=== PATIENT | female | born 1960 | race Hispanic/Latino ===

== ENCOUNTER 2021-07-31 07:39 | Outpatient (RCR) | payer MEDICARE, SELFPAY ==
--- NOTE | 2021-07-30 13:27 | PC.NURSE ---
Patient received [employer] vaccine in December 2020.
[2021-07-31] MEDS: diphenhydrAMINE HCl CAP 25 MG CAPSULE PO (07:58)
[2021-07-31] MEDS: ACETAMINOPHEN 325 MG TABLET 650 MG PO (07:58)
[2021-07-31] MEDS: FAMOTIDINE 20 MG TABLET PO (07:58)
[2021-07-31 08:13] VITALS: BP 131/69; PULSE 74; RESP 18; TEMP 35.9; O2SAT 99
--- NOTE | 2021-07-31 08:17 | PC.NURSE ---
Attempted to start IV on patient twice. Unable to get IV started due to lack of veins. Will give medication subcutaneous.
[2021-07-31 09:19] VITALS: BP 144/89
--- NOTE | 2021-08-03 12:48 | PC.NURSE ---
Patient states that she is much better since covid infusion only symptom she continues to have is tiredness.
== END 2021-07-31 14:25 | disposition home or self-care (01) ==
LOC: AMCINF 07:39
PROVIDERS: PCP Family Medicine; Referring Provider Family Medicine; Visit Provider Internal Medicine Hematology & Oncology
DX: Z23 Encounter for immunization (principal); U07.1 COVID-19; E11.9 Type 2 diabetes mellitus without complications; I10 Essential (primary) hypertension
CPT/HCPCS: A9270; M0243; Q0243

== ENCOUNTER 2023-07-15 12:50 | Outpatient (CLI) | payer MEDICARE, SELFPAY ==
--- NOTE | 2023-07-15 13:00 | ECG_ITS ---
Measurements Intervals [place] Rate: 88 P: 17 AK: 155 QRS: -42 QRSD: 98 T: 12 QT: 360 QTc: 438 Interpretive Statements SINUS RHYTHM LEFT AXIS DEVIATION PATTERN CONSISTENT WITH PULMONARY DISEASE BORDERLINE T WAVE ABNORMALITY- INFERIOR LEADS BORDERLINE ECG NO PREVIOUS ECG AVAILABLE FOR COMPARISON Electronically Signed On 07-15-2023 13:39:23 CDT by Silvio Larsen D.O.
[2023-07-15 13:29] LABS: Anion Gap 7 mmol/L (8-16); Blood Urea Nitrogen 12 mg/dL (7-17); Calcium 9.9 mg/dL (8.4-10.2); Carbon Dioxide 26 mmol/L (22-30); Chloride 105 mmol/L (98-107); Estimated Glomerular Filt Rate > 60; Glucose 81 mg/dL (65-110); Potassium 4.4 mmol/L (3.4-5.0); Sodium 138 mmol/L (137-145)
== END 2023-07-15 12:51 | disposition home or self-care (01) ==
LOC: ANHSURGERY 12:55
PROVIDERS: Anesthesiology; PCP Family Medicine; Visit Provider Urology
DX: Z01.818 Encounter for other preprocedural examination (principal); R94.31 Abnormal electrocardiogram [ECG] [EKG]; R93.1 Abnormal findings on diagnostic imaging of heart and coronary circulation; I10 Essential (primary) hypertension; E11.9 Type 2 diabetes mellitus without complications
CPT/HCPCS: 36415; 80048; 93005

== ENCOUNTER 2023-08-19 05:15 | Day surgery (SDC) | payer MEDICARE, SELFPAY ==
[2023-07-13 14:47] VITALS: BMI 45.8
--- NOTE | 2023-07-13 14:48 | PC.NURSE ---
Addendum entered by Becky Engel RN 08/17/23 10:59: PT TO ARRIVE AT 0730 ON 08/19/23 FOR SURGERY AT 0930. Original Note: Report to the Outpatient Waiting Room, entrance under the green pavilion located off [facility], at time _0930_ on date _[id number]_. Planned Procedure Time: _1130_. Time changes happen often and if your time is changed the preop area will call you the afternoon before. - You and your visitor will be asked to self-screen and do not enter if you have any COVID symptoms. - A mask is optional within the hospital at this time. Patients may have clear liquids (water, carbonated beverages, clear teas, apple juice) until 3 hours prior to surgery with a maximum of 20 ounces. - No food from midnight until time of surgery Take the following medications with a SIP of water the morning of surgery: _Clonazepam and Prozac DO NOT STOP ANY OF YOUR OTHER PRESCRIPTION MEDICATIONS PRIOR TO SURGERY ?EXCEPT THE FOLLOWING Medications to discontinue per physician ____None Date to take last dose Please no make-up, nail telugu, hairspray, perfume, deodorant, or body powder the day of surgery. No jewelry (including any body piercings) or valuables the day of surgery, leave them at home. Please take a shower or bath the night before, or the morning of, surgery with an antibacterial soap. Wear comfortable, loose fitting clothing. - Jewelry must be removed prior to entering the operating room. Rings and piercings that are not removed may be cut off. - The hospital will not accept responsibility for valuables. - Please leave all valuables, including medications, at home the day of surgery. If you are going home after surgery, a licensed power screwdriver operator must drive you home. - NO public transportation without another adult if you receive anesthesia. - We recommend that an adult stay with you for 24 hours following discharge. - We also recommend that you do not drive, make important decision, drink alcoholic beverages, or take any drugs that were not prescribed by your health care provider for at least 24 hours after your discharge time. Follow any additional instructions given to you from your surgeon. If you or anyone in your household have experienced Covid symptoms in the past week, please notify your surgeon or the nurse liaison at the phone number below for possible testing. Telephone instructions given to _Patient__and asked if any additional questions and then verbalized understanding. Patient advised to call surgeon office or pre surgery nurse liaison [phone] if any additional questions.
--- NOTE | 2023-07-24 18:51 | PM.IMHP ---
H&P: HPI History of Present Illness Date/Time: 07/24/23 18:51 Chief Complaint: UUI Narrative: history of urge incontinence. >50% improved with INterStim trial Review of Systems Review of Systems: All systems reviewed & are unremarkable except as noted in HPI and below PMFSH Social History Social History Smoking status: Never smoker Substance use: current Substance use type: marijuana Other substance usage details: edibles once or twice a month. Living arrangements: with family Spiritual care concerns: No Meds Home Medications and Allergies Home Medications Medication Instructions Recorded Confirmed Type clonazepam 1 mg tablet 1 mg PO DAILY 07/31/21 07/13/23 History fluoxetine 40 mg capsule (Prozac) 40 mg PO DAILY 07/31/21 07/13/23 History lisinopril 2.5 mg tablet 5 mg PO BID 07/31/21 07/13/23 History metformin 1,000 mg tablet 1,000 mg PO BID 07/31/21 07/13/23 History olanzapine 10 mg tablet 10 mg PO HS 07/31/21 07/13/23 History omeprazole 40 mg capsule,delayed 40 mg PO DAILY 07/31/21 07/13/23 History release simvastatin 40 mg tablet 40 mg PO HS 07/31/21 07/13/23 History glipizide 10 mg tablet 10 mg PO BID 07/13/23 07/13/23 History insulin glargine 100 unit/mL (3 65 unit subcut QPM 07/13/23 07/13/23 History mL) subcutaneous pen (Basaglar KwikPen U-100 Insulin) semaglutide 1 mg/dose (4 mg/3 mL) 2 mg subcut WEEKLY 07/13/23 07/13/23 History subcutaneous pen injector (Ozempic) Allergies Allergy/AdvReac Type Severity Reaction Status Date / Time No Known Allergies Allergy Verified 07/13/23 14:37 Exam Narrative: NAD normal breathing A+Ox3 Assessment and Plan Assessment and plan (1) Urge incontinence: Code(s): N39.41 - Urge incontinence Status: Acute Assessment and Plan: interstim impant. \ risks of bleeding, infection, need for revision, need for battery changes, lack of efficacy discussed
--- NOTE | 2023-07-25 07:16 | WPDHPUPDATE1 ---
History and Physical Update Update Date/Time: 07/25/23 07:16 History and Physical has been reviewed, including an updated exam of the patient. There are NO changes in the patient's condition. Risks, benefits, and alternatives have been discussed and questions answered. Patient agrees to proceed with procedure.
--- NOTE | 2023-08-17 10:58 | PC.NURSE ---
Pt states no changes in medication or health history since initial interview. New pre-op instructions reviewed with pt. Pt denies further questions at this time.
--- NOTE | 2023-08-18 04:22 | PM.IMHP ---
H&P: HPI History of Present Illness Date/Time: 08/18/23 04:22 Chief Complaint: UUI Narrative: UUI, interStim tiral >50% improved Review of Systems Review of Systems: All systems reviewed & are unremarkable except as noted in HPI and below PMFSH Social History Social History Smoking status: Never smoker Substance use: current Substance use type: marijuana Other substance usage details: edibles once or twice a month. Living arrangements: with family Spiritual care concerns: No Meds Home Medications and Allergies Home Medications Medication Instructions Recorded Confirmed Type clonazepam 1 mg tablet 1 mg PO DAILY 07/31/21 08/17/23 History fluoxetine 40 mg capsule (Prozac) 40 mg PO DAILY 07/31/21 08/17/23 History lisinopril 2.5 mg tablet 5 mg PO BID 07/31/21 08/17/23 History metformin 1,000 mg tablet 1,000 mg PO BID 07/31/21 08/17/23 History olanzapine 10 mg tablet 10 mg PO HS 07/31/21 08/17/23 History omeprazole 40 mg capsule,delayed 40 mg PO DAILY 07/31/21 08/17/23 History release simvastatin 40 mg tablet 40 mg PO HS 07/31/21 08/17/23 History glipizide 10 mg tablet 10 mg PO BID 07/13/23 08/17/23 History insulin glargine 100 unit/mL (3 65 unit subcut QPM 07/13/23 08/17/23 History mL) subcutaneous pen (Basaglar KwikPen U-100 Insulin) semaglutide 1 mg/dose (4 mg/3 mL) 2 mg subcut WEEKLY 07/13/23 08/17/23 History subcutaneous pen injector (Ozempic) Allergies Allergy/AdvReac Type Severity Reaction Status Date / Time No Known Allergies Allergy Verified 08/17/23 10:57 Exam Narrative: nad nromal breathing A+Ox3 Assessment and Plan Assessment and plan (1) Urge incontinence: Code(s): N39.41 - Urge incontinence Status: Acute Plan interstim neurstim implant
[2023-08-19] VITALS (8 sets, daily range): BP systolic 124–172; BP diastolic 67–98; PULSE 81–98; RESP 13–19; TEMP 36.1–36.3; O2SAT 92–100; BMI 46.2
--- NOTE | ~2023-08-19 | XR_ITS ---
Indication: Stimulator lead placement TECHNIQUE: Fluoroscopy used during transsacral stimulator lead placement performed by [Madi Younger MD] on 08/19/2023. 1 minute 56 seconds of fluoroscopy with 2 fluoroscopic images captured. FINDINGS: Correlate with procedure note. IMPRESSION: Fluoroscopy used during transsacral stimulator lead placement. Reviewed, dictated and finalized at location A.
--- NOTE | 2023-08-19 07:13 | WPDHPUPDATE1 ---
History and Physical Update Update Date/Time: 08/19/23 07:13 History and Physical has been reviewed, including an updated exam of the patient. There are NO changes in the patient's condition. Risks, benefits, and alternatives have been discussed and questions answered. Patient agrees to proceed with procedure.
--- NOTE | 2023-08-19 08:13 | P.PNAN_ITS ---
Anes - Initial Pre Proc Eval Procedure: Operation Date: 08/19/23 09:30 Proposed Procedures p Neurostimulator Implant Phase Two - Madi Younger MD Date/Time: 08/19/23 08:13 Surgeon: Madi Younger MD Pre Op Diagnosis: stress urinary incont Patient Data Age: 63 Gender: F Height: 1.57 m Weight: 113.6 kg Allergies Allergy/AdvReac Type Severity Reaction Status Date / Time No Known Allergies Allergy Verified 08/17/23 10:57 Home Medications Medication Instructions Recorded Confirmed Type clonazepam 1 mg tablet 1 mg PO DAILY 07/31/21 08/17/23 History fluoxetine 40 mg capsule (Prozac) 40 mg PO DAILY 07/31/21 08/17/23 History lisinopril 2.5 mg tablet 5 mg PO BID 07/31/21 08/17/23 History metformin 1,000 mg tablet 1,000 mg PO BID 07/31/21 08/17/23 History olanzapine 10 mg tablet 10 mg PO HS 07/31/21 08/17/23 History omeprazole 40 mg capsule,delayed 40 mg PO DAILY 07/31/21 08/17/23 History release simvastatin 40 mg tablet 40 mg PO HS 07/31/21 08/17/23 History glipizide 10 mg tablet 10 mg PO BID 07/13/23 08/17/23 History insulin glargine 100 unit/mL (3 65 unit subcut QPM 07/13/23 08/17/23 History mL) subcutaneous pen (Basaglar KwikPen U-100 Insulin) semaglutide 1 mg/dose (4 mg/3 mL) 2 mg subcut WEEKLY 07/13/23 08/17/23 History subcutaneous pen injector (Ozempic) Patient hx anesthesia problems: none Family hx anesthesia problems: none Results Review: All pre-operative results and documents have been reviewed as part of the pre- operative evaluation. [facility] Social History Social History Smoking status: Never smoker Substance use: current Substance use type: marijuana Other substance usage details: edibles once or twice a month. Living arrangements: with family Spiritual care concerns: No Anes - Eval Final PreProcedure Day of Procedure 08/19/23 08:13 Patient weight: morbidly obese Heart: regular rate and rhythm Lungs: clear to auscultation Airway: Mallampati scale class III Neurological: alert and oriented Last oral intake: >/= 8 hours ASA classification: III Emergent: no Anesthetic plan: proceed Anesthesia type and monitoring: general LMA and standard monitoring Results Review: All pre-operative results and documents have been reviewed as part of the pre- operative evaluation. Informed Consent: The patient's anesthetic plan and its attendant risks and benefits were discussed with the patient/family/POA. Questions were solicited and answers provided to the satisfaction of the patient/family/POA.
[2023-08-19] MEDS: LACTATED RINGERS 1,000 ML 30 ML IV CONT (08:20)
[2023-08-19 08:25] LABS: Glucose Point of Care 125 mg/dl (65-105)
[2023-08-19] MEDS: ceFAZolin 2 GM/D5W 50 ML 2 GM/50 ML BAG IVPB (10:10)
[2023-08-19] MEDS: ceFAZolin SODIUM 1 GM VIAL (10:38)
[2023-08-19] MEDS: BUPIVACAINE/EPINEPHRINE 0.5% 10 ML VIAL 20 ML INFILTRATE (10:39)
--- NOTE | 2023-08-19 11:19 | W.PM.PROC2 ---
Procedure Note - Detailed Date of Procedure 08/19/23 Pre-op Diagnosis stress urinary incont Post-op Diagnosis Same Procedure Performed Implantation of sacral lead 04990 Fluoroscopic guidance for needle placement 51494-23 Placement of implantable pulse generator 70409 Complex neurostimulator programming impedance check [id number] Surgeon Madi Younger MD Anesthesia MAC and Local Indications This is a patient with refractory urge urinary incontinence. They have undergone a successful trial of sacral nerve stimulation. They present today for permanent implantation. They understand the risks of bleeding, infection, decreased efficacy, need for revision and battery changes. They agree to proceed Findings See dictated Description of Procedure They were correctly identified and informed consent was obtained. There brought to the operating room. There placed in the prone position. There given appropriate perioperative antibiotics. A time-out performed. I used fluoroscopy to vadim out my sacral landmarks in the AP and the lateral orientation. I anesthetized the skin. I entered the S3 foramen. I monitored the needle with fluoroscopy. I got appropriate Maurilio and toe response at a low threshold. I made a skin july. I placed a stylet. I placed the lead introducer sheath. I thinned placed and deployed to my lead. I got appropriate responses again at a low threshold. I marked out the site of the pulse generator. I anesthetized the skin and made that incision. I created a subcutaneous pocket to house the pulse generator. I tunneled the lead towards this pocket. Appropriate connections were made between the lead and the battery. It was placed in the pocket. It was programmed and impedances were checked and found to be normal. I irrigated out all wounds. I ensured hemostasis. I closed the subcutaneous tissues with 2 Vicryl. I closed the skin with 4 0 Vicryl. Glue was applied. There then awakened and transferred to the PACU in stable condition. Implants Sacral neurostimulator Estimated Blood Loss 5 Drains No Packing No Pathology None sent Condition Stable Disposition PACU
[2023-08-19 11:30] LABS: Glucose Point of Care 104 mg/dl (65-105)
[2023-08-19] MEDS: fentaNYL CITRATE INJ (*CRX) 100 MCG/2 ML VIAL 25 MCG IV PUSH (11:51)
== END 2023-08-19 13:15 | disposition home or self-care (01) ==
PROVIDERS: PCP Family Medicine; Visit Provider Urology
PROC: (CPT 64561; principal; 2023-08-19 09:30)
DX: N39.46 Mixed incontinence (principal); Z79.84 Long term (current) use of oral hypoglycemic drugs; Z79.4 Long term (current) use of insulin; Z79.85 Long-term (current) use of injectable non-insulin antidiabetic drugs; F12.90 Cannabis use, unspecified, uncomplicated; E66.01 Morbid (severe) obesity due to excess calories; Z68.42 Body mass index [BMI] 45.0-49.9, adult
CPT/HCPCS: 64561; 64590; 82948; 99199; C1767; C1778; C1787; J0330; J0690; J1100; J2250; J2405; J2704; J3010; J7120